=== PATIENT | female | born 1970 | race Caucasian/White ===

== ENCOUNTER 2017-01-13 13:26 | Emergency (ER) | payer MEDICAID ==
[~2017-01-13] VITALS: Ht 160 cm; Wt 73.6 kg
[~2017-01-13 13:26] MED LIST: ALPR-475 PO; BACL20TA PO; BUPR100T6 PO; CLON0.5T20 PO; DICY10CA53 PO; HYDR1AMP2 PO; LOVA40TA2 PO; METO-95 PO; METO25TA35 PO; OXYC-302 PO; OXYM15SP8 NAS; PROM25AM6 PR; TRAM-28 PO
[2017-01-13] MEDS ORDERED: DIPH25CA61 PO (13:46)
[2017-01-13] MEDS ORDERED: DIAZEPAM 5 MG TABLET PO ONE (14:00)
[2017-01-13] MEDS ORDERED: DIAZEPAM 5 MG TABLET ONE (14:04)
[2017-01-13 14:28] LABS: HEMOGLOBIN 13.3 g/dL (11.7-16.4)
[2017-01-13 14:31] LABS: ASPARTATE AMINO TRANSFERASE 25 U/L (15-37); BLOOD UREA NITROGEN 10 mg/dL (7-18)
[2017-01-13 14:59] VITALS: BP 134/93
[2017-01-13] MEDS ORDERED: ONDANSETRON ODT 4 MG ONE (15:05)
[2017-01-13] MEDS ORDERED: LORazepam 1MG TABLET ONE (15:05)
[2017-01-13] MEDS ORDERED: LORazepam 1MG TABLET PO ONE (15:30)
[2017-01-13] MEDS ORDERED: ONDANSETRON ODT 4 MG PO ONE (15:30)
== END 2017-01-13 16:08 | disposition home or self-care (01) ==
LOC: ED 13:57
DX: M79.642 Pain in left hand (principal); M79.641 Pain in right hand; M54.12 Radiculopathy, cervical region; R79.82 Elevated C-reactive protein (CRP)
CPT/HCPCS: 36415; 71010; 72125; 73130; 80053; 85025; 85651; 86141; 93005; 99285; Q0162

== ENCOUNTER 2017-02-22 08:25 | Emergency (ER) | payer MEDICAID ==
[~2017-02-22] VITALS: Ht 157.5 cm; Wt 75.2 kg
[~2017-02-22 08:25] MED LIST changes: +DIPH25CA61 PO
[2017-02-22 08:26] VITALS: BP 130/85
[2017-02-22] MEDS ORDERED: FLUORESCEIN OPHTHALMIC 1 MG STRIP ONE (08:34)
[2017-02-22] MEDS ORDERED: PROPARACAINE OPHTH 0.5%, 15ML ONE (08:34)
[2017-02-22] MEDS ORDERED: FLUORESCEIN OPHTHALMIC 1 MG STRIP EACHEYE ONE (09:00)
[2017-02-22] MEDS ORDERED: PROPARACAINE OPHTH 0.5%, 15ML EACHEYE ONE (09:00)
== END 2017-02-22 10:11 | disposition home or self-care (01) ==
LOC: ED 10:00
DX: H10.023 Other mucopurulent conjunctivitis, bilateral (principal); E78.5 Hyperlipidemia, unspecified
CPT/HCPCS: 70450; 99284

== ENCOUNTER 2017-03-30 14:53 | Emergency (ER) | payer MEDICAID ==
[~2017-03-30] VITALS: Ht 157.5 cm; Wt 75.0 kg
[2017-03-30 14:58] VITALS: BP 133/85
[2017-03-30] MEDS ORDERED: DIPH,PERTUSS(ACELL),TET VAC/PF 0.5 ML IM-VACC ONE ×2 (15:47→16:00)
[2017-03-30] MEDS ORDERED: DIAZEPAM 5 MG TABLET PO ONE (16:00)
[2017-03-30] MEDS ORDERED: HYDROcodone/APAP 5/325 TABLET PO ONE (16:00)
[2017-03-30] MEDS ORDERED: HYDROcodone/APAP 5/325 TABLET ONE (16:20)
[2017-03-30] MEDS ORDERED: DIAZEPAM 5 MG TABLET ONE (16:20)
== END 2017-03-30 16:58 | disposition home or self-care (01) ==
LOC: ED 16:52
DX: S46.811A Strain of other muscles, fascia and tendons at shoulder and upper arm level, right arm, initial encounter (principal); E78.5 Hyperlipidemia, unspecified; F17.200 Nicotine dependence, unspecified, uncomplicated; Z88.0 Allergy status to penicillin; Z88.1 Allergy status to other antibiotic agents; Z88.8 Allergy status to other drugs, medicaments and biological substances; X58.XXXA Exposure to other specified factors, initial encounter; Y93.89 Activity, other specified; Y99.8 Other external cause status; Y92.89 Other specified places as the place of occurrence of the external cause; Z88.6 Allergy status to analgesic agent
CPT/HCPCS: 73030; 90471; 90715; 99284; J7512

== ENCOUNTER 2017-04-26 13:29 | Emergency (ER) | payer MEDICAID ==
[~2017-04-26] VITALS: Ht 157.5 cm; Wt 76.0 kg
[2017-04-26 13:34] VITALS: BP 123/82
[2017-04-26] MEDS ORDERED: FLUORESCEIN OPHTHALMIC 1 MG STRIP ONE (15:00)
[2017-04-26] MEDS ORDERED: PROPARACAINE OPHTH 0.5%, 15ML ONE (15:00)
[2017-04-26] MEDS ORDERED: PROPARACAINE OPHTH 0.5%, 15ML EACHEYE ONE (15:30)
[2017-04-26] MEDS ORDERED: FLUORESCEIN OPHTHALMIC 1 MG STRIP EACHEYE ONE (15:30)
== END 2017-04-26 15:59 | disposition home or self-care (01) ==
LOC: ED 15:40
DX: B30.9 Viral conjunctivitis, unspecified (principal); F17.200 Nicotine dependence, unspecified, uncomplicated; Z90.49 Acquired absence of other specified parts of digestive tract
CPT/HCPCS: 99283

== ENCOUNTER 2017-05-18 13:32 | Emergency (ER) | payer MEDICAID ==
[~2017-05-18] VITALS: Ht 157.5 cm; Wt 73.8 kg
[2017-05-18 13:39] VITALS: BP 119/84
[2017-05-18] MEDS ORDERED: HYDROcodone/APAP 5/325 TABLET PO ONE (14:00)
[2017-05-18] MEDS ORDERED: DIAZEPAM 5 MG TABLET PO ONE (14:00)
[2017-05-18] MEDS ORDERED: DIAZEPAM 5 MG TABLET ONE (14:04)
[2017-05-18] MEDS ORDERED: HYDROcodone/APAP 5/325 TABLET ONE (14:04)
== END 2017-05-18 15:33 | disposition home or self-care (01) ==
LOC: ED 14:19
DX: S39.012A Strain of muscle, fascia and tendon of lower back, initial encounter (principal); S29.012A Strain of muscle and tendon of back wall of thorax, initial encounter; E78.5 Hyperlipidemia, unspecified; G43.909 Migraine, unspecified, not intractable, without status migrainosus; W01.0XXA Fall on same level from slipping, tripping and stumbling without subsequent striking against object, initial encounter; Y93.89 Activity, other specified; Y92.89 Other specified places as the place of occurrence of the external cause; Y99.8 Other external cause status
CPT/HCPCS: 72072; 72110; 99284

== ENCOUNTER 2017-07-12 13:35 | Emergency (ER) | payer MEDICAID ==
[~2017-07-12] VITALS: Ht 157.5 cm; Wt 73.8 kg
[~2017-07-12 13:35] MED LIST changes: -TRAM-28 PO; +TRAM-47 PO
[2017-07-12] MEDS ORDERED: ONDANSETRON 2MG/ML, 2ML IVPush ONE (14:00)
[2017-07-12] MEDS ORDERED: SODIUM CHLORIDE FLUSH 10ML SYR IVF ONE (14:00)
[2017-07-12] MEDS ORDERED: SODIUM CHLORIDE 0.9% 1,000ML IVBOLUS ONE (14:00)
[2017-07-12 14:41] LABS: HEMATOCRIT 40.4 % (34.6-47.8)
[2017-07-12 14:46] LABS: BLOOD UREA NITROGEN 12 mg/dL (7-18)
[2017-07-12 15:05] LABS: HEMOGLOBIN 13.8 g/dL (11.7-16.4); WHITE BLOOD COUNT 13.4 x10^3/uL (3.4-10)
[2017-07-12] MEDS ORDERED: PROMETHAZINE 25 MG/ML, 1ML ONE (16:29)
[2017-07-12] MEDS ORDERED: PROMETHAZINE 25 MG/ML, 1ML IM ONE (16:30)
[2017-07-12 16:42] VITALS: BP 114/84
== END 2017-07-12 16:45 | disposition home or self-care (01) ==
LOC: ED 16:39
DX: N92.0 Excessive and frequent menstruation with regular cycle (principal); N92.1 Excessive and frequent menstruation with irregular cycle; E78.5 Hyperlipidemia, unspecified; Z90.49 Acquired absence of other specified parts of digestive tract; Z88.0 Allergy status to penicillin
CPT/HCPCS: 36415; 76801; 80048; 82040; 84702; 85025; 86901; 96372; 99285; J2550

== ENCOUNTER 2017-07-27 11:29 | Emergency (ER) | payer MEDICAID ==
[~2017-07-27] VITALS: Ht 160 cm; Wt 75.3 kg
[2017-07-27] MEDS ORDERED: BENZONATATE 100 MG CAPSULE PO ONE (12:30)
[2017-07-27] MEDS ORDERED: MAALOX/HYOSCYAMINE/LIDOCAINE 45 ML BTL ONE (12:42)
[2017-07-27 12:59] VITALS: BP 120/78
[2017-07-27] MEDS ORDERED: MAALOX/HYOSCYAMINE/LIDOCAINE 45 ML BTL PO ONE (13:00)
== END 2017-07-27 13:02 | disposition home or self-care (01) ==
LOC: ED 12:40
DX: J20.8 Acute bronchitis due to other specified organisms (principal); J00 Acute nasopharyngitis [common cold]
CPT/HCPCS: 71020; 99284; J7512

== ENCOUNTER 2018-01-28 14:23 | Emergency (ER) | payer MEDICAID ==
[~2018-01-28] VITALS: Ht 157.5 cm; Wt 74.0 kg
[2018-01-28 14:26] VITALS: BP 148/80
[2018-01-28] MEDS ORDERED: HYDROcodone/APAP 5/325 TABLET PO ONE (16:30)
[2018-01-28] MEDS ORDERED: HYDROcodone/APAP 5/325 TABLET ONE (16:38)
== END 2018-01-28 17:48 | disposition home or self-care (01) ==
LOC: ED 17:20
DX: S86.112A Strain of other muscle(s) and tendon(s) of posterior muscle group at lower leg level, left leg, initial encounter (principal); G43.909 Migraine, unspecified, not intractable, without status migrainosus; E78.5 Hyperlipidemia, unspecified; X58.XXXA Exposure to other specified factors, initial encounter; Y93.89 Activity, other specified; Y92.89 Other specified places as the place of occurrence of the external cause; Y99.8 Other external cause status
CPT/HCPCS: 29515; 99284

== ENCOUNTER 2018-01-30 09:15 | Emergency (ER) | payer MEDICAID ==
[~2018-01-30] VITALS: Ht 157.5 cm; Wt 65.9 kg
[2018-01-30 09:20] VITALS: BP 157/95
[2018-01-30] MEDS ORDERED: HYDROcodone/APAP 5/325 TABLET PO ONE (10:00)
[2018-01-30] MEDS ORDERED: HYDROcodone/APAP 5/325 TABLET ONE (10:02)
== END 2018-01-30 11:13 | disposition home or self-care (01) ==
LOC: ED 11:00
DX: S86.812A Strain of other muscle(s) and tendon(s) at lower leg level, left leg, initial encounter (principal); Y93.89 Activity, other specified; Y92.488 Other paved roadways as the place of occurrence of the external cause; Y99.8 Other external cause status; Z90.49 Acquired absence of other specified parts of digestive tract; X58.XXXA Exposure to other specified factors, initial encounter
CPT/HCPCS: 99284

== ENCOUNTER 2018-11-28 11:07 | Emergency (ER) | payer MEDICAID, OTHER ==
[~2018-11-28] VITALS: Ht 160 cm; Wt 75.0 kg
[2018-11-28] MEDS ORDERED: METOPROLOL TARTRATE 25 MG TABLET ONE (11:48)
[2018-11-28] MEDS ORDERED: METOPROLOL TARTRATE 50 MG TABLET PO ONE (12:00)
[2018-11-28 12:08] LABS: BASOPHILS # (AUTO) 0.04 x10^3/uL (0-0.1); BASOPHILS % (AUTO) 0 % (0-1); EOSINOPHILS # (AUTO) 0.29 x10^3/uL (0-0.4); EOSINOPHILS % (AUTO) 2 % (1-7); LYMPHOCYTES # (AUTO) 2.44 x10^3/uL (1-3.4); LYMPHOCYTES % (AUTO) 18 % (22-44); MD NO; MEAN CORPUSCULAR HEMOGLOBIN 30.1 pg (27.0-34.8); MEAN CORPUSCULAR HGB CONC 33.7 g/dL (32.4-35.8); MEAN CORPUSCULAR VOLUME 89.2 fL (80-100); MEAN PLATELET VOLUME 7.7 fL (7.4-10.4); MONOCYTES # (AUTO) 0.73 x10^3/uL (0.2-0.8); MONOCYTES % (AUTO) 5 % (2-9); NEUTROPHILS # (AUTO) 10.31 x10^3/uL (1.8-6.8); NEUTROPHILS % (AUTO) 75 % (42-75); PLATELET COUNT 503 x10^3/uL (130-400); RED BLOOD COUNT 4.77 x10^6/uL (3.82-5.3); RED CELL DISTRIBUTION WIDTH 13.8 % (9.6-15.2)
[2018-11-28 12:18] LABS: ALBUMIN 3.9 g/dL (3.4-5.0); ANION GAP 7 mmol/L (5-15); CALCIUM 8.9 mg/dL (8.5-10.1); CHLORIDE 109 mmol/L (98-107); CREATININE 0.85 mg/dL (0.55-1.02)
[2018-11-28 12:26] VITALS: BP 112/80
== END 2018-11-28 13:21 | disposition home or self-care (01) ==
LOC: ED 13:18
DX: J02.9 Acute pharyngitis, unspecified (principal); J20.9 Acute bronchitis, unspecified; R00.0 Tachycardia, unspecified; E78.5 Hyperlipidemia, unspecified; G43.909 Migraine, unspecified, not intractable, without status migrainosus; Z76.0 Encounter for issue of repeat prescription; Z90.49 Acquired absence of other specified parts of digestive tract; Z87.19 Personal history of other diseases of the digestive system
CPT/HCPCS: 36415; 71046; 80048; 82040; 85025; 99284